=== PATIENT | male | born 1975 | race African-American/Black ===

== ENCOUNTER 2020-06-19 15:41 | Outpatient (CLI) | payer BC ==
--- NOTE | 2020-06-19 16:18 | ULT ---
Ultrasound of thekidneys: 06/19/2020 COMPARISON:None available HISTORY:Proteinuria TECHNIQUE: Multiplanar grayscale sonographic imaging of thekidneys and urinary bladder FINDINGS:Right kidney measures 9.8 x 6.9 x 5.5 cm and the left kidney measures 10.0 x 5.8 x 5.4 cm. No hydronephrosis seen on either side. There is a 1.9 x 1.7 x 1.6 cm cyst within the upper pole of th e right kidney. Urinary bladder appears grossly unremarkable. Impression: No acute findings.
== END 2020-06-19 15:42 | disposition home or self-care (01) ==
LOC: BICULT 15:41
PROVIDERS: ATTEND Family Medicine
DX: R80.9 Proteinuria, unspecified (principal)
CPT/HCPCS: 76770

== ENCOUNTER 2020-07-21 13:40 | Outpatient (CLI) | payer BC ==
--- NOTE | 2020-07-21 14:30 | CT ---
EXAM: CT ABDOMEN AND PELVIS HISTORY: Left lower quadrant pain. Stone protocol CT 06/26/2020. COMPARISON: 06/26/2020. Procedure: Multiple contiguous axial images were obtained and a CT of the abdomen and pelvis with IV contrast. C oronal reformats were performed. FINDINGS: Lower Chest: Within normal limits. Vessels: Normal caliber aorta. No periaortic fat stranding. Heart: Normal heart size. No significant pericardial effusion. Abdomen: Portal vein:Patent. Gallbladder: Surgically absent. Liver: within normal limits. Pancreas: within normal limits. Spleen: within normal limits. Adrenals: within normal limits. Kidneys: Symmetric enhancement. No obstructive uropathy. Exophytic cyst emanates from the upper pole of the right kidney, measuring 1.6 cm. Peritoneum: No ascites or free air, no fluid collection. Bowel: Limited evaluation due to the lack of oral contrast administration. No evidence of bowel obstr uction. Ileocecal junction is unremarkable. Normal caliber appendix. Scattered fecal material in a nondistended, nondilated colon. Persistent bowel wall thickening involving small bowel loops in the l eft upper quadrant. Mesentery and Retroperitoneum: No enlarged mesenteric or retroperitoneal lymph nodes. Abdominal Wall: There is induration and edema involving the anterior left abdominal rectus muscle, th e overlying subcutaneous fat as well as the underlying peritoneum. There is a small amount of fluid present. Findings may represent infection or inflammation with regards to the reservoir and catheter associated with the gastric lap band. The possibility of a fracture of the catheter with associated leakage of fluid cannot be excluded. There does not appear to be a well formed abscess. Pelvis: Reproductive Organs: Reproductive organs are unremarkable. Pelvis: No mass, lymphadenopathy, free air or free fluid. Bladder: within normal limits. Bones: within normal limits. IMPRESSION: 1. Persistent fluid and irregularity involving the mesentery as well as the overlying musculature and soft tissues in the left upper quadrant. An infectious, inflammatory process or possible perforation of the tubing with leakage of fluid are all differential considerations. General surgical consultation is recommended. 2. Mild mucosal thickening of the small bowel loops at the region of the aforementioned inflammation. Reactive changes are suspected. Results of study conveyed to Dr. Francois via [facility] 07/21/2020 at 2:28 PM Code CR Transcribed Date/Time: 07/21/2020 2:35 PM
[2020-07-21] MEDS ORDERED: Iopamidol 370 76% 100 ML VIAL ONE (15:28)
== END 2020-07-21 13:41 | disposition home or self-care (01) ==
LOC: BICCT 13:40
PROVIDERS: ATTEND Family Medicine
DX: R10.32 Left lower quadrant pain (principal); K63.89 Other specified diseases of intestine
CPT/HCPCS: 74177; Q9967

== ENCOUNTER 2020-09-04 08:51 | Day surgery (SDC) | payer BC ==
[2020-09-01 09:29] VITALS: BMI 34.0
[2020-09-04 09:29] LABS: #Eosinphils 0.1 thou/uL (0.0-0.7); #Lymphocytes 3.5 thou/uL (1.20-3.40); #Monocytes 0.5 thou/uL (0.11-0.59); #Neutrophils 3.7 thou/uL (1.40-6.50); %Basophils 0.5 % (0.0-1.0); %Eosinophils 0.9 % (0.0-10.0); %Lymphocytes 44.7 % (21.0-51.0); %Monocytes 6.7 % (0.0-10.0); %Neutrophils 47.2 % (42.0-75.0); Hemoglobin 13.9 g/dL (14.0-18.0); Mean Corpuscular HGB CONC 32.6 g/dL (32.0-36.0); Mean Corpuscular Hemoglobin 29.9 pg (27.0-31.0); Mean Corpuscular Volume 91.9 fL (78.0-98.0); Mean Platelet Volume 8.3 fL (7.4-10.4); Platelet Count 240 thou/uL (130-400); RBC Distribution Width 12.7 % (11.5-14.5); Red Blood Cell (RBC) Count 4.64 mill/uL (4.70-6.10); White Blood Cell (WBC) Count 7.8 thou/uL (4.8-10.8)
[2020-09-04 09:33] LABS: INR-International Normal Ratio 0.9; PTT 30.3 sec (22.9-36.1); Prothrombin Time 12.5 sec (12.0-14.7)
[2020-09-04] MEDS ORDERED: FLU VACC QS2020-21(6MOS UP)/PF 60 MCG/0.5 ML SYRINGE IM ONE (09:45)
[2020-09-04 09:51] VITALS: BP 119/79; TEMP 98.8
[2020-09-04] MEDS ORDERED: Fentanyl 100 MCG/2 ML VIAL ONE (09:56)
[2020-09-04] MEDS ORDERED: Midazolam HCl 2 mg/2 ml Vial ONE (09:56)
[2020-09-04] MEDS ORDERED: Sodium Bicarbonate 2.5 MEQ/5 ML VIAL ONE (09:57)
--- NOTE | 2020-09-04 12:03 | CT ---
CT RENAL PERCUTANEOUS BIOPSY: DATE: 09/04/2020. TIME: 10:00 AM. INDICATION: Chronic kidney disease. COMPARISON: CT of the abdomen and pelvis dated July 21, 2020. TECHNIQUE: Informed consent was obtained. Preprocedure CT images were obtained for guidance purposes only. Site overlying the lower pole of the right kidney was marked. The patient underwent conscious sedation under guidance of the radiology nurse and received 2 mg of IV Versed and 50 mcg of IV fentanyl. Natalia humphrey see her note for full details concerning the medications administered. The site overlying the lower pole of the right kidney was prepped and draped in the usual sterile fashion. Buffered 1% lidoc joey was administered into the skin and overlying subcutaneous tissues. Under CT fluoroscopic guidance, a 17-gauge trocar needle was guided down into the lower pole of the right kidney. Two initi al core samples were obtained utilizing [id number] core biopsy device of the lower pole of the right kidney. Dr. Kiran of the pathology department was on-site to verify adequacy of tissue sampli ng. Dr. Kiran requested additional core samples. The third core sample proved insignificant. An additional 18-gauge core gun was obtained. An additional 4th sample was obtained which yielded a good core specimen. Post procedure images demonstrate a small amount of adjacent perinephric hematoma and gas near the lower pole of the right kidney. The patient tolerated the biopsies without difficult y or complication. The time for the total examination time was 34 minutes. FINDING: Preprocedure CT images demonstrate a laparoscopic band and postprocedural change of a prior gastropla sty. There are scattered colonic diverticula. No free fluid or enlarged lymph nodes are evident. IMPRESSION: Successful CT guided nonfocal right lower pole renal biopsy. Transcribed Date/Time: 09/04/2020 1:22 PM
--- NOTE | 2020-09-05 11:49 | CT ---
CT RENAL PERCUTANEOUS BIOPSY: DATE: 09/04/2020. TIME: 10:00 AM. INDICATION: Chronic kidney disease. COMPARISON: CT of the abdomen and pelvis dated July 21, 2020. TECHNIQUE: Informed consent was obtained. Preprocedure CT images were obtained for guidance purposes only. Site overlying the lower pole of the right kidney was marked. The patient underwent conscious sedation under guidance of the radiology nurse and received 2 mg of IV Versed and 50 mcg of IV fentanyl. Natalia humphrey see her note for full details concerning the medications administered. The site overlying the lower pole of the right kidney was prepped and draped in the usual sterile fashion. Buffered 1% lidoc joey was administered into the skin and overlying subcutaneous tissues. Under CT fluoroscopic guidance, a 17-gauge trocar needle was guided down into the lower pole of the right kidney. Two initi al core samples were obtained utilizing [id number] core biopsy device of the lower pole of the right kidney. Dr. Kiran of the pathology department was on-site to verify adequacy of tissue sampli ng. Dr. Kiran requested additional core samples. The third core sample proved insignificant. An additional 18-gauge core gun was obtained. An additional 4th sample was obtained with the new 18-gaug e core biopsy device which yielded a good core specimen. Post procedure images demonstrate a small amount of adjacent perinephric hematoma and gas near the lower pole of the right kidney. The patient tolerated the biopsies without difficulty or complication. The time for the total examination time was 34 minutes. FINDING: Preprocedure CT images demonstrate a laparoscopic band and postprocedural change of a prior gastropla sty. There are scattered colonic diverticula. No free fluid or enlarged lymph nodes are evident. IMPRESSION: Successful CT guided nonfocal right lower pole renal biopsy. Transcribed Date/Time: 09/05/2020 11:49 AM
== END 2020-09-04 12:30 | disposition home or self-care (01) ==
LOC: CT 08:51
PROVIDERS: ATTEND Internal Medicine Nephrology
PROC: 0TB33ZX Excision of Right Kidney Pelvis, Percutaneous Approach, Diagnostic (ICD-10-PCS; principal; 2020-09-04)
DX: I12.9 Hypertensive chronic kidney disease with stage 1 through stage 4 chronic kidney disease, or unspecified chronic kidney disease (principal); N18.30 Chronic kidney disease, stage 3 unspecified; D63.1 Anemia in chronic kidney disease; R80.9 Proteinuria, unspecified; E55.9 Vitamin D deficiency, unspecified; E87.6 Hypokalemia; F90.9 Attention-deficit hyperactivity disorder, unspecified type; K21.9 Gastro-esophageal reflux disease without esophagitis; Z79.899 Other long term (current) drug therapy; Z88.8 Allergy status to other drugs, medicaments and biological substances; Z98.84 Bariatric surgery status
CPT/HCPCS: 36415; 50200; 77012; 85025; 85610; 85730; 88329; 90471; 90662; G0008; J2250; J3010

== ENCOUNTER 2021-06-18 17:25 | Outpatient (CLI) | payer OTHER ==
[2021-06-18 18:45] LABS: ALT (SGPT) 32 U/L (8-55); AST (SGOT) 25 U/L (5-34); Alkaline Phosphatase 74 U/L (40-110); Anion Gap 15 mmol/L (10-20); BUN (Urea Nitrogen) 26 mg/dL (8.9-20.6); Bilirubin, Total 0.4 mg/dL (0.2-1.2); Calc. Creatinine Clearance 0 mL/min (70-130); Calcium 9.7 mg/dL (7.8-10.44); Carbon Dioxide 19 mmol/L (22-29); Chloride 109 mmol/L (98-107); Globulin 2.9 g/dL (2.4-3.5); Glucose 80 mg/dL (70-105); Potassium 4.6 mmol/L (3.5-5.1); Protein, Total 6.9 g/dL (6.0-8.3); Sodium 138 mmol/L (136-145)
[2021-06-18 18:54] LABS: #Eosinphils 0.1 10x3/uL (0.0-0.5); #Monocytes 0.6 10x3/uL (0.0-1.1); #Neutrophils 3.5 10x3/uL (1.5-8.4); %Basophils 0.3 % (0.0-2.0); %Eosinophils 1.4 % (0.0-6.0); %Lymphocytes 39.8 % (18.0-47.0); %Monocytes 8.8 % (0.0-10.0); %Neutrophils 49.1 % (40.0-75.0); Hemoglobin 13.7 g/dL (13.5-17.5); Mean Corpuscular HGB CONC 31.6 g/dL (32.0-36.0); Mean Corpuscular Hemoglobin 30.6 pg (27.0-33.0); Mean Corpuscular Volume 96.9 fl (81.2-95.1); Mean Platelet Volume 10.8 fl (7.4-10.4); Platelet Count 262 10x3/uL (150-450); RBC Distribution Width 12.4 % (11.5-14.5); Red Blood Cell (RBC) Count 4.48 10x6/uL (4.32-5.72); White Blood Cell (WBC) Count 7.2 10x3/uL (3.5-10.5)
[2021-06-19 09:02] LABS: SARS-CoV-2 PCR by NAA Not Detected (NotDetected)
== END 2021-06-18 17:26 | disposition home or self-care (01) ==
LOC: LABBT 17:25
PROVIDERS: ATTEND Specialist
DX: Z01.812 Encounter for preprocedural laboratory examination (principal); Z20.822 Contact with and (suspected) exposure to COVID-19
CPT/HCPCS: 80053; 85025; U0003; U0005

== ENCOUNTER 2021-06-20 09:32 | Day surgery (SDC) | payer OTHER ==
[2021-06-19 10:59] VITALS: BMI 34.7
[2021-06-20] MEDS ORDERED: Bupivacaine 0.25% HCL 30 ML VIAL ONE (09:38)
[2021-06-20] MEDS ORDERED: Lidocaine 1% w/Epinephrine 1:100K 20 ML VIAL ONE (09:38)
[2021-06-20] MEDS ORDERED: Ketorolac Tromethamine 30 MG/ML VIAL ONE (09:47)
[2021-06-20] MEDS ORDERED: Acetaminophen 500 MG TAB ONE (09:48)
[2021-06-20] MEDS ORDERED: Gabapentin 300 MG CAP ONE (09:48)
[2021-06-20] MEDS ORDERED: Fentanyl 100 MCG/2 ML VIAL ONE ×2 (10:33→10:40)
[2021-06-20] MEDS ORDERED: Famotidine/PF 20 mg/2ml Vial ONE (10:38)
[2021-06-20] MEDS ORDERED: Midazolam HCl 2 mg/2 ml Vial ONE (10:38)
[2021-06-20] MEDS ORDERED: Dexmedetomidine 200 MCG/2 ML VIAL ONE (10:40)
[2021-06-20] MEDS ORDERED: Lidocaine 1% PF 5 ML VIAL ONE (10:59)
[2021-06-20] MEDS ORDERED: PHENYLEPHRINE-NS 100 MCG/ML 10 ML SYRINGE ONE (10:59)
[2021-06-20] MEDS ORDERED: Dexamethasone 20 MG/5 ML VIAL ONE (10:59)
[2021-06-20] MEDS ORDERED: Glycopyrrolate 0.2 MG/ML 5 ML SYRINGE ONE (10:59)
[2021-06-20] MEDS ORDERED: PROPOFOL 200 MG/20 ML VIAL ONE (10:59)
[2021-06-20] MEDS ORDERED: Rocuronium Bromide 10 MG/ML (10ML VIAL) ONE (10:59)
[2021-06-20] MEDS ORDERED: ePHEDrine 50 MG/ML VIAL ONE (10:59)
[2021-06-20] MEDS ORDERED: Ondansetron PF 4 MG/2 ML Vial ONE (10:59)
== END 2021-06-20 15:15 | disposition home or self-care (01) ==
LOC: SDC 09:32
PROVIDERS: ATTEND Specialist
PROC: 0DP64CZ Removal of Extraluminal Device from Stomach, Percutaneous Endoscopic Approach (ICD-10-PCS; principal; 2021-06-20)
DX: K95.01 Infection due to gastric band procedure (principal); K66.0 Peritoneal adhesions (postprocedural) (postinfection); K21.00 Gastro-esophageal reflux disease with esophagitis, without bleeding; I12.9 Hypertensive chronic kidney disease with stage 1 through stage 4 chronic kidney disease, or unspecified chronic kidney disease; N18.31 Chronic kidney disease, stage 3a; E53.8 Deficiency of other specified B group vitamins; E55.9 Vitamin D deficiency, unspecified; M54.41 Lumbago with sciatica, right side; E66.9 Obesity, unspecified; Z68.34 Body mass index [BMI] 34.0-34.9, adult; Z88.8 Allergy status to other drugs, medicaments and biological substances; Z79.899 Other long term (current) drug therapy; Z98.84 Bariatric surgery status; Y84.8 Other medical procedures as the cause of abnormal reaction of the patient, or of later complication, without mention of misadventure at the time of the procedure
CPT/HCPCS: 87070; 87077; 87186; 87205; J0690; J1100; J1885; J2250; J2405; J2704; J3010; J3490; S0020; S0028